=== PATIENT | female | born 1985 | race American Indian/Alaskan Native ===

== ENCOUNTER 2017-05-30 16:10 | Inpatient (IN) | payer OTHER ==
[~2017-05-30] VITALS: Ht 177.8 cm; Wt 59.0 kg
== END 2017-05-30 20:47 | disposition designated cancer center or children's hospital (05) | DRG 782 ==
LOC: LDR 16:10
PROC: BY4FZZZ Ultrasonography of Third Trimester, Single Fetus (ICD-10-PCS; principal; 2017-05-30)
PROC: BU46ZZZ Ultrasonography of Uterus (ICD-10-PCS; 2017-05-30)
PROC: 4A1HXCZ Monitoring of Products of Conception, Cardiac Rate, External Approach (ICD-10-PCS; 2017-05-30)
DX: O34.33 Maternal care for cervical incompetence, third trimester (principal); Z34.83 Encounter for supervision of other normal pregnancy, third trimester; R10.2 Pelvic and perineal pain

== ENCOUNTER → 2017-05-30 | Emergency (ER) | payer OTHER | END | disposition still patient (30) | LOC: ER | DX: O34.33 Maternal care for cervical incompetence, third trimester (principal); R10.2 Pelvic and perineal pain; Z34.03 Encounter for supervision of normal first pregnancy, third trimester ==

== ENCOUNTER 2022-01-05 10:22 | Emergency (ER) | payer OTHER ==
[~2022-01-05] VITALS: Ht 177.8 cm; Wt 108.9 kg
== END 2022-01-05 16:44 | disposition home or self-care (01) ==
LOC: ER 10:22
DX: K29.70 Gastritis, unspecified, without bleeding (principal); Z88.0 Allergy status to penicillin; Z91.013 Allergy to seafood